=== PATIENT | female | born 1995 | race Caucasian/White ===

== ENCOUNTER 2024-04-01 17:41 | Outpatient (CLI) | payer MEDICAID, SELFPAY ==
[2024-04-01 14:39] LABS: HCT 45.5 % (36.0-46.0); HGB 15.1 g/dL (11.2-15.7); MCH 28.8 pg (27.0-33.0); MCHC 33.2 % (32.0-36.0); MCV 87 fL (80-95); MPV 10.6 fL (8.0-11.0); Platelet Count 293 10^3/uL (130-400); RBC 5.25 10^6/uL (3.93-5.22); RDW-SD 40.7 fL; WBC 8.98 10^3/uL (4.4-10.8)
[2024-04-01 15:35] LABS: HCG Quant, Pregnancy < 1 mIU/mL (1-3)
== END 2024-04-01 17:42 | disposition home or self-care (01) ==
LOC: LBO 17:41
PROVIDERS: PCP Registered Nurse; Visit Provider Obstetrics & Gynecology
DX: N93.9 Abnormal uterine and vaginal bleeding, unspecified (principal); N92.0 Excessive and frequent menstruation with regular cycle
CPT/HCPCS: 36415; 85027; 84443; 84702

== ENCOUNTER 2024-04-16 02:53 | Outpatient (CLI) | payer MEDICAID, SELFPAY ==
--- NOTE | 2024-04-16 07:15 | DI.US_ITS ---
Exam(s) US PELVIS TRANSVAGINAL EXAM: US PELVIS TRANSVAGINAL CLINICAL HISTORY: abnormal uterine bleeding,n93.9 TECHNIQUE: Transabdominal and transvaginal imaging was performed using standard protocol. COMPARISON: No exams were available for comparison FINDINGS: UTERUS: 9.6 x 3.6 x 5.0 cm Endometrium: 9 mm Myometrium: Unremarkable. Cervix: Unremarkable. OVARIES: Right: Cyst or mass: None. Left: Cyst or mass: None. DOPPLER: Color: Symmetric and uniform flow to both ovaries. No hyperemia. CUL-DE-SAC: Free fluid: None. IMPRESSION: 1. Normal-appearing uterus with endometrial stripe within normal limits. 2. Unremarkable bilateral ovaries. DATA REPOSITORY:
== END 2024-04-16 03:13 ==
LOC: DI 02:53
PROVIDERS: PCP Registered Nurse; Visit Provider Obstetrics & Gynecology
DX: N93.8 Other specified abnormal uterine and vaginal bleeding (principal)
CPT/HCPCS: 76830; 76856

== ENCOUNTER 2024-05-19 09:49 | Outpatient (CLI) | payer MEDICAID, SELFPAY | END 2024-05-19 09:50 | disposition home or self-care (01) | LOC: LBO 09:50 | PROVIDERS: PCP Registered Nurse; Visit Provider Obstetrics & Gynecology | DX: Z01.818 Encounter for other preprocedural examination (principal) | CPT/HCPCS: 36415; 86850; 86900; 86901 ==

== ENCOUNTER 2024-05-20 06:18 | Day surgery (SDC) | payer MEDICAID, SELFPAY ==
[2024-05-20] VITALS (16 sets, daily range): BP systolic 77–133; BP diastolic 39–67; PULSE 54–97; RESP 12–26; TEMP 36–36.6; O2SAT 94–98; BMI 40.6
[2024-05-20] MEDS: Lactated Ringers 1,000 ML 125 ML IV ×2 (06:50→08:42)
--- NOTE | 2024-05-20 07:12 | ANES.PREOP_ITS ---
General Info Date of Service Date Performed: 05/20/24 Height: 5 ft 6 in Weight: 114.3 kg Body Mass Index (BMI): 40.6 Surgical Procedure: Operation Date: 05/20/24 07:40 Proposed Procedure Side Surgeon p Endometrial Ablation- LOLITA Ware MD Meds Allergies and Home Medications Allergies Allergy/AdvReac Type Severity Reaction Status Date / Time calderon Allergy Hives Verified 05/20/24 06:31 Home Medication ?Medication ?Instructions ?Recorded Unknown [No Known Home Meds] 02/07/16 Current Visit Medications: Current Medications Generic Name Dose Route Start Last Admin Trade Name Freq PRN Reason Stop Dose Admin Ringer's Solution 1,000 mls @ 125 mls/hr 05/20/24 06:00 05/20/24 06:50 IV 06/18/24 23:59 125 mls/hr INFUSION ELLEN Administration IV Miscellaneous Supplies 1 each 05/20/24 06:00 Iv Access IV 06/18/24 23:59 DIRECTED ELLEN Sodium Chloride 0 ml 05/20/24 06:00 Normal Saline Flush 10 Ml Syr IV 06/18/24 23:59 PRN PRN Sodium Chloride 0 ml 05/20/24 06:00 Normal Saline 10 Ml Vial IJ 06/18/24 23:59 DIRECTED PRN Sterile Water 0 ml 05/20/24 06:00 Water,Injection,Sterile 10 Ml Vial IJ 06/18/24 23:59 DIRECTED PRN PFSH Active Problems Active Problems: Problem Status Onset Code Abnormal uterine bleeding Acute N93.9 Medical History Medical History (Updated 05/20/24 @ 06:32 by She Mcduffie RN) Diabetes gestational per patient Surgical History Surgical History History of cholecystectomy Tobacco Smoking/Tobacco Use Status: Never Alcohol Alcohol Intake: current Alcohol intake frequency: holidays/special occasions only Substance Use Substance use: Never Substance use type: does not use Prental History History 3 Para 3 Hx # Term Pregnancies Multiple births Hx # Pregnancies Ectopic pregnancies AB induced Hx Number of Living Children AB spontaneous Past Pregnancies Del. Date GA/Weeks # Preg Succ Route Wgt Sex Labor Lgth Anesth esia Location Prov Complic 12/20/16 35 Yes vaginal Male [facility] 03/22/19 38 Yes vaginal 3061.748 g Female [employer] quiana 04/13/23 38 Yes vaginal 3940.584 g Male [facility] Delivery Date: 03/22/19 Last Updated by: Tonya Aranda RN GDM Delivery Date: 04/13/23 Last Updated by: Tonya Aranda RN GDM Vital Signs and Lab Results Point of Care Results Point of Care Results: POC- Test(urine) Negative 05/20/24 06:22 Lab Results Blood Type / Crossmatch: Antibody Screen NEGATIVE 05/19/24 Complete Blood Count: No Data to Display Complete Metabolic Panel: No Data to Display Liver Function Panel: No Data to Display Coagulation Panel: No Data to Display Cardiac Panel: No Data to Display Arterial Blood Gas: No Data to Display Venous Blood Gas: No Data to Display Pancreas Panel: No Data to Display Thyroid Panel: No Data to Display Infectious Disease: No Data to Display Blood Cultures: No Data to Display Toxicology Panel: No Data to Display Panel: No Data to Display Anesthesia Assessment and Plan Anesthesia History Personal History: Delayed Emergence Family History: No Family History of Anesthesia Complications Exercise Tolerance Exercise Tolerance: Metabolic Equivalents>4 Pertinent Negatives Pertinent Negatives: No Symptoms of GERD Cardiac & Pulmonary Exam Cardiac Exam: Normal S1/S2 Heart Sounds Pulmonary Exam: Clear Bilateral Breath Sounds Implantable Cardiac Device Does patient have a Pacemaker or an ICD?: No Airway Exam Known Difficult Airway: No Mallampati Class: 2 Mouth Opening: Normal (> 3cm) Thyromental Distance: Greater than 3 cm Neck Range of Motion: Full ROM Neck Circumference: Normal Teeth Condition: Normal Dentition ASA Classification ASA Score: ASA 2 Emergency Case?: No NPO Status NPO Status: NPO Clears >2 hours, Solids >8 hours Status Status: Negative HCG Anesthesia Plan Resuscitation Status: Full Code Anesthesia Technique: General Anesthesia Airway Planned: LMA Monitors Used: Standard Monitors
[2024-05-20] MEDS: Silver Nitrate Stick 1 EACH (08:15)
[2024-05-20] MEDS: ePHEDrine 25 MG/5 ML Syringe IVP (08:39)
--- NOTE | 2024-05-20 09:02 | W.PM.OP ---
Date of service: 05/20/24 Time of Service: 08:00 Operative Note Operative Note DATE OF PROCEDURE: 05/20/24 PRE-OP DIAGNOSIS: Abnormal uterine bleeding PROCEDURE: Hysteroscopy D&C, Novasure endometrial ablation SURGEON: Marita Ware Refer to Anesthesia Record ESTIMATED BLOOD LOSS: 5 COMPLICATIONS: None Patient was transported to: PACU Patient's condition: stable Indications: P3 with heavy periods, normal work up, failed medication management, desires ablation Findings: Normal appearing external genitalia, vagina and cervix. Normal appearing endometrial cavity with some possible small polyps. Endometrium well ablated s/p procedure. Procedure Description: After informed consent was signed the patient was taken to the operating room and given General room air anesthesia.? SCDs were placed on her legs.? She was prepped and draped in the dorsal lithotomy position in the [facility].? A time out was performed. Her bladder was drained of urine if not done just prior to arrival to the room.? Exam under anesthesia revealed normal external genitalia, vagina normal for age and a normal sized uterus. A speculum was placed into the vagina to reveal the cervix.? The anterior lip of the cervix was grasped with a single tooth tenaculum.? The cervical length was measured with a large dilator at 4.5cm. The cervix was then dilated until a uterine sound could be inserted to measure the total length of 9.5cm. The?cavity length was then calculated at 5cm. The hysteroscope was assembled and the uterine cavity was visualized. No obvious abnormalities were noted. The novasure device was opened and the cavity length set. It was inserted into the endometrial cavity and the width was measured. The cavity assessment was performed and passed and using tenaculums to hold the external cervical os closed. The device was then deployed for the appropriate amount of time = 51sec. The device was removed and the wand inspected and appeared thoroughly charred. The hysteroscope was again inserted into the endometrial cavity and it appeared to be thoroughly treated. It was removed from the endometrial cavity. The tenaculum was removed from the cervix with good hemostasis with pressure and silver nitrate.? The speculum was removed from the vagina. The patient was placed back into the supine position.? She was moved to the stretcher and taken to the recovery room in stable condition.
--- NOTE | 2024-05-20 09:11 | W.PM.DSUDISC ---
Date of service: 05/20/24 Time of Service: 07:30 Discharge Plan Disposition Patient Disposition: Home Discharge Details Attending Provider: Marita Ware Primary Care Provider: Michelle Shaver Home Meds and New Rx's Prescriptions: No Action No Known Home Meds Discharge Instructions Stand Alone Forms: Anesthesia Discharge Inst., DSU Post TALENT ASSISTANT Surg W/O Incision, Eladio Smithey (DSU) Activity:: Activity as Tolerated Diet:: As Tolerated Discharge Orders Discharge Orders: Discharge Order (Routine); Ordered 05/20/24 Ordered By: Marita Ware
--- NOTE | 2024-05-20 09:46 | W.ANESPOSTOP ---
Postoperative Evaluation Date, Time and Location Date Performed: 05/20/24 Time Performed: 09:46 Patient Location: Day Surgery Unit Vital Signs Most Recent Imported Vital Signs: Most Recent Vital Signs Temp Pulse Resp BP Pulse Ox 36.5 C 74 21 112/66 98 05/20/24 09:28 05/20/24 09:28 05/20/24 09:28 05/20/24 09:28 05/20/24 09:28 Pain Score Most Recent Pain Score: Most Recent Pain Score Pain Level 2 05/20/24 09:28 Assessment Mental Status: Awake (Alert & Oriented to Patient Baseline) Airway and Respiratory Function: Patent airway with normal (patient baseline) respiratory exam Cardiovascular Function: Hemodynamically Stable Hydration Status: Adequately Hydrated Nausea & Vomiting: No Nausea or Vomiting Pain: Pt. Denies Any Pain Peripheral Nerve Block: Patient did not receive a nerve block
== END 2024-05-20 09:42 | disposition home or self-care (01) ==
PROVIDERS: PCP Registered Nurse; Visit Provider Obstetrics & Gynecology
PROC: (CPT 58353; principal; 2024-05-20 07:30)
DX: N93.9 Abnormal uterine and vaginal bleeding, unspecified (principal)
CPT/HCPCS: 58563; 81025; J0131; J0665; J1100; J1885; J2371; J2405; J2704

== ENCOUNTER 2025-03-18 16:02 | Outpatient (REF) | payer MEDICAID, SELFPAY ==
[2025-03-18 15:19] LABS: HCT 42.9 % (36.0-46.0); HGB 14.0 g/dL (11.2-15.7); MCH 28.1 pg (27.0-33.0); MCHC 32.6 % (32.0-36.0); MCV 86 fL (80-95); MPV 11.0 fL (8.0-11.0); Platelet Count 290 10^3/uL (130-400); RBC 4.99 10^6/uL (3.93-5.22); RDW 12.7 % (11.7-14.6); RDW-SD 39.4 fL; WBC 9.76 10^3/uL (4.4-10.8)
[2025-03-18 15:41] LABS: TSH (W/Ref FT4) 3.14 uIU/mL (0.36-3.74)
[2025-03-18 15:47] LABS: Hemoglobin A1C 6.0 % (<5.7)
== END 2025-03-18 16:03 | disposition home or self-care (01) ==
LOC: NCHCN 16:02
PROVIDERS: PCP Nurse Practitioner Family; Visit Provider Family Medicine
DX: Z13.1 Encounter for screening for diabetes mellitus (principal); Z13.29 Encounter for screening for other suspected endocrine disorder; Z13.0 Encounter for screening for diseases of the blood and blood-forming organs and certain disorders involving the immune mechanism
CPT/HCPCS: 85027; 83036; 84443